=== PATIENT | male | born 2000 | race Two or more races ===

== ENCOUNTER 2021-03-05 16:32 | Emergency (ER) | payer OTHER ==
[2021-03-05 16:48] VITALS: BP 133/71
--- NOTE | 2021-03-05 17:51 | XRAY Report ---
PROCEDURE: Tib/Fib LT INDICATIONS: calf pain onset today TECHNIQUE: 2 views of the tibia and fibula were acquired. COMPARISON: 3 FINDINGS: Bones: No fractures or dislocations. No periosteal reaction. No suspicious bony lesions. Soft tissues: No suspicious soft tissue calcifications or masses. IMPRESSION: 1. No fracture or dislocation. 2. No definite radiographic evidence of stress reaction. Reviewed by: Rupesh Baumann MD on 03/05/2021 5:50 PM PDT Approved by: Rupesh Baumann MD on 03/05/2021 5:50 PM PDT Station ID: [id number]
--- NOTE | 2021-03-05 18:20 | ED Physician Documentation ---
PD HPI LOWER EXT INJURY - Stated complaint Stated Complaint: LT ANKLE PX - Chief complaint Chief Complaint: Trauma Ext - History obtained from History obtained from: Patient - History of Present Illness PD HPI LOW EXT INJURY LOCATION: Left, Calf Type of injury: Other (he was doing sprints in PT and felt onset calf pain abruptly while running. Pain with walking.). No: Fall Where injury occurred: Work Timing - onset: Today Timing - details: Abrupt onset, Still present Improved by: Rest Worsened by: Palpating, Other (walking) Associated symptoms: No: Weakness, Numbness, Swelling Contributing factors: Other (no recent illness/antibiotics). No: Prior ortho surgery Similar symptoms before: Has not had sx before Recently seen: Not recently seen Review of Systems Constitutional: denies: Fever, Chills Nose: denies: Rhinorrhea / runny nose, Congestion Throat: denies: Sore throat Respiratory: denies: Cough Skin: denies: Rash, Lesions, Abrasion (s), Laceration (s) Neurologic: denies: Focal weakness, Numbness PD PAST MEDICAL HISTORY - Past Medical History Past Medical History: No - Present Medications Home Medications: Ambulatory Orders Medication Instructions Recorded Confirmed Ibuprofen [Motrin] 600 mg PO TID PRN #25 tab 03/05/21 - Allergies Allergies/Adverse Reactions: Allergies Allergy/AdvReac Type Severity Reaction Status Date / Time No Known Drug Allergies Allergy Verified 03/05/21 16:43 PD ED PE NORMAL - Vitals Vital signs reviewed: Yes - General General: Alert and oriented X 3, No acute distress, Well developed/nourished - Derm Derm: Normal color, Warm and dry - Extremities Extremities: Other (left calf muscle above the Achilles tendon proper, with muscle tenderness and small area of softness medial calf muscle. Able to flex and extend strongly but hurts. Achilles firm and intact. ) - Neuro Neuro: Alert and oriented X 3, No motor deficit, No sensory deficit, Normal speech Results - Vitals Vitals: Vital Signs - 24 hr 03/05/21 16:43 Temperature 36.7 C Heart Rate 83 Respiratory 16 Rate Blood Pressure 133/71 H O2 Saturation 97 Oxygen O2 Source Room air - Rads (name of study) tib/fib Radiology: Prelim report reviewed (no fractures nor obvious soft tissue abnormal), See rad report PD MEDICAL DECISION MAKING - ED course Complexity details: considered differential (seems like tear of small bundle gastroc muscle. Not involving Achilles lower third of calf, so should heal with conservative treatment. ), d/w patient Departure - Departure Disposition: 01 Home, Self Care Clinical Impression: Gastrocnemius muscle tear Qualifiers: Encounter type: initial encounter Laterality: left Qualified Code(s): S86.112A - Strain of other muscle(s) and tendon(s) of posterior muscle group at lower leg level, left leg, initial encounter Condition: Stable Record reviewed to determine appropriate education?: Yes Instructions: ED Strain Muscle Ext Follow-Up: SHANI Lockhart [Provider Group] Prescriptions: Ibuprofen [Motrin] 600 mg PO TID PRN #25 tab PRN Reason: Pain Comments: This seems like a partial tear of the calf muscle. Ashish wrap to keep from swelling. Minimal to no weightbearing on the foot and ankle to reduce the work of the muscle; use crutches for getting around for the next week at least. Follow-up with your primary care in about a week for recheck. This may take even 2 to 3 weeks for good healing back to normal activity but may be shorter. Recheck in a week to see how much progress of increased activity is okay. Ibuprofen 3 times a day for the next several days to week. Add Tylenol if needed for pains. Forms: Activity restrictions Discharge Date/Time: 03/05/21 19:05
[2021-03-05] MEDS ORDERED: ACETAMINOPHEN 325 MG TABLET PO STA (18:36)
[2021-03-05] MEDS ORDERED: IBUPROFEN 600 MG TABLET PO STA (18:36)
== END 2021-03-05 19:05 | disposition home or self-care (01) ==
LOC: ED 16:32
DX: S86.112A Strain of other muscle(s) and tendon(s) of posterior muscle group at lower leg level, left leg, initial encounter (principal); X58.XXXA Exposure to other specified factors, initial encounter; Y93.02 Activity, running; Y99.1 Military activity
CPT/HCPCS: 73590; 99283; A9270